=== PATIENT | female | born 1930 | race Caucasian/White ===

== ENCOUNTER 2019-07-06 11:19 | Emergency (ER) | payer MEDICARE ==
--- OUTSIDE RECORDS SUMMARY | 2019-07-06 11:36 | XMS REPORT | Continuity of Care Document ---
:1930 External Reference #:[id number] Author Name Meliza Umanzor, ISAURA, SOFIA Address [address] [place] [address] Care Team Providers Name Role Phone Chio Richmond MD - Internal Medicine Care Team Information Electronic Engineering Draftsperson [phone] Problems Active Problems Provider Date Benign essential hypertension Isaias Anaya M.D., Onset: 04/17/2012 [facility] Dizziness and giddiness Isaias Anaya M.D., Onset: 04/17/2012 [facility] Pure hypercholesterolemia Isaias Anaya M.D., Onset: 04/17/2012 [facility] Chest pain Isaias Anaya M.D., Onset: 04/17/2012 [facility] Aneurysm of thoracic aorta Meliza Umanzor, Onset: 05/21/2012 [facility] Localized, primary osteoarthritis of the Cj Tompkins M.D. Onset: 2014 pelvic region and thigh Arthralgia of the pelvic region and Cj Tompkins M.D. Onset: 06/16/2015 thigh Prosthetic arthroplasty of the hip Cj Tompkins M.D. Onset: 09/03/2015 Low back pain Cj Tompkins M.D. Onset: 12/06/2015 Essential hypertension Meliza Umanzor, Onset: 04/26/2017 [facility] DELAROS[facility] Malaise and fatigue Dulce Chahal MD Onset: 06/27/2017 Lumbar radiculopathy Cj Tompkins M.D. Onset: 08/01/2017 Walking disability Dulce Chahal MD Onset: 09/12/2017 Aftercare following joint replacement Dulce Chahal MD Onset: 11/28/2017 surgery Solitary sacroiliitis Ivis Lujan PA Onset: 12/17/2018 Social History Type Date Description Comments Sex Unknown Tobacco Use Start: Unknown Never Smoked Cigarettes ETOH Use Drinks Alcoholic Beverages Rarely Tobacco Use Start: Unknown Patient has never smoked Smoking Status Reviewed: 12/17/18 Patient has never smoked Allergies, Adverse Reactions, Alerts Description No Known Drug Allergies Medications Active Medications SIG Qnty Indications Ordering Provider Date Lisinopril 1 by mouth 60tabs I71.2 Umanzor, Meliza 05/26/2019 40mg Tablets twice a day ISAURA Britton, CERTIFIED ALCOHOL AND DRUG COUNSELOR I10 Bisoprolol Fumarate 1 tab by mouth 90tabs I10 Umanzor, Meliza 05/22/2018 5mg every evening ISAURA Britton, CERTIFIED ALCOHOL AND DRUG COUNSELOR Tablets Pravastatin Sodium 1 by mouth every E78.00 Unknown 10mg day Tablets Fish Oil take one capsule Unknown Capsules by mouth once daily Magnesium take 1 tab by Unknown Capsules mouth once daily Aspirin 1 by mouth every 4 Unknown 325mg Tablets hours as needed. Milk Of Magnesia once daily Unknown 400mg/5ML Suspension Tramadol HCL Unknown 50mg Tablets Vitamin D 1 by mouth daily. Unknown 2000Unit Tablets Immunizations Description No Information Available Vital Signs Date Vital Result Comment 05/26/2019 11:02am BP Systolic Sitting Left Arm 168 mmHg BP Diastolic Sitting Left Arm 90 mmHg Respiratory Rate 18 /min Height 60.5 inches 5'0.50" Weight 118.00 lb BMI (Body Mass Index) 22.7 kg/m2 BSA (Body Surface Area) 1.50 m2 [place] body weight in kilograms 47 kg O2 % BldC Oximetry 96 % 12/17/2018 10:44am BP Systolic 149 mmHg BP Diastolic 95 mmHg Body Temperature 99.8 F Heart Rate 60 /min Height 60.5 inches 5'0.50" Weight 115.00 lb BMI (Body Mass Index) 22.1 kg/m2 BSA (Body Surface Area) 1.48 m2 [place] body weight in kilograms 47 kg O2 % BldC Oximetry 98 % Results Description No Information Available Procedures Date Code Description Status 05/26/2019 43262 EKG-Tracing And Report Completed 12/17/2018 48100 Radiologic Exam Hip Unilateral With Pelvis 2-3 Views Completed 12/17/2018 49026 Radiology, L-S Spine Complete Completed 06/11/2013 03121708 Colonoscopy Completed Medical Devices Description No Information Available Encounters Type Date Location Provider Dx Diagnosis Office Visit 05/26/2019 Cardiology Office Meliza Umanzor I71.2 Thoracic aortic 11:00a ISAURA Britton, aneurysm, without CERTIFIED ALCOHOL AND DRUG COUNSELOR rupture 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 I10 Essential (primary) hypertension Office Visit 12/17/2018 10:45a Orthopaedic Office Ivis Lujan, M25.551 Pain in [place] right hip M46.1 Sacroiliitis, not elsewhere classified Z96.641 Presence of right artificial hip joint Assessments Date Code Description Provider 05/26/2019 I71.2 Thoracic aortic aneurysm, without Meliza Umanzor, ISAURA, rupture CERTIFIED ALCOHOL AND DRUG COUNSELOR 05/26/2019 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 aortic (valve) Meliza Umanzor MSN, insufficiency CERTIFIED ALCOHOL AND DRUG COUNSELOR 05/26/2019 I10 Essential (primary) hypertension Meliza Umanzor, ISAURA, CERTIFIED ALCOHOL AND DRUG COUNSELOR 12/17/2018 M25.551 Pain in right hip Ivis Lujan PA 12/17/2018 M46.1 Sacroiliitis, not elsewhere Ivis Lujan PA classified 12/17/2018 Z96.641 Presence of right artificial hip Ivis Lujan PA joint Plan of Treatment Future Appointment(s):07/03/2019 10:00 am - Meliza Umanzor MSN, CERTIFIED ALCOHOL AND DRUG COUNSELOR at Cardiology Fctntn9006/10/2019 11:40 am - Meliza Umanzor MSN, CERTIFIED ALCOHOL AND DRUG COUNSELOR at Cardiology [id number]/26/2019 - Meliza Umanzor MSN, FNPI71.2 Thoracic aortic aneurysm, without ruptureNew Medication:Lisinopril 40 mg - 1 by mouth twice a dayNew Xrays:CT, Chest, Without Contrast, Ordered: 05/26/19Comments: Raise the RHEA, monitor the BP and repeat the CT.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 aortic (valve ) insufficiencyNew Orders:Echocardiogram, Ordered: 05/26/19Comments:We will re- evaluate with an echo.I10 Essential (primary) hypertensionNew Medication: Lisinopril 40 mg - 1 by mouth twice a dayAllFollow up:2 week for BP check nurse visit (with her cuff). 1 month clinically. Functional Status Functional Condition Comment Date Status Independent with all ADL's Active Mental Status Description No Information Available Referrals Description No Information Available
--- OUTSIDE RECORDS SUMMARY | 2019-07-06 11:36 | XMS REPORT | Continuity of Care Document ---
:1930 External Reference #:[id number] Author Name Chio Richmond M.D. (transmitted by agent of provider Della Jones) Address [address] [place] [address] Problems Active Problems Provider Date Sciatica Chio Richmond M.D. 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 Mouth Once Daily 50mg Tablets With Food Tramadol HCL 1 by mouth every 120tabs G89.4 Chio Richmond M.D. 08/14/2017 50mg 6 hours as Tablets needed pain Pravastatin Sodium 1 by mouth every 90tabs Chio Richmond M.D. 07/18/2012 10mg day Tablets Lisinopril 1 by mouth twice 180tabs I11.9 Chio Richmond M.D. 04/01/2012 20mg Tablets a day Immunizations CPT Code Status Date Vaccine Lot # [id number] Given 04/30/2019 Influenza Virus (Quadrivalent)Splitvirus 3 Years Of Age And Older Q2035 Given 04/30/2019 Influenza Virus (Quadrivalent)Splitvirus 3 [id number] Years Of Age And Older Q2035 Given 03/19/2018 Influenza Virus (Quadrivalent)Splitvirus 3 Years Of Age And Older 11111 Given 03/19/2018 Influenza Virus Vaccine, Quadrivalent, Split, Preservative Free Q2035 Given 04/18/2017 Influenza Virus (Quadrivalent)Splitvirus 3 Years Of Age And Older Q2035 Given 02/19/2017 Influenza Virus (Quadrivalent)Splitvirus 3 Years Of Age And Older Q2037 Given 02/08/2016 Influenza Vaccine (Fluvirin) 3 Years Of Age Or [id number] Older Q2037 Given 06/23/2015 Influenza Vaccine (Fluvirin) 3 Years Of Age Or [id number] Older Q2037 Given 02/03/2014 Influenza Vaccine (Fluvirin) 3 Years Of Age Or Older Q2037 Given 04/29/2013 Influenza Vaccine (Fluvirin) 3 Years Of Age Or [id number] Older Q2037 Given 04/15/2012 Influenza Vaccine (Fluvirin) 3 Years Of Age Or [id number] Older 41836 Given 10/02/2011 Pneumovax Polyvalent Inj Im [id number] Q2036 Given 04/03/2011 Flulaval [id number] 79333 Given 04/27/2010 Influenza Vaccine [id number] 25523 Given 04/13/2008 Influenza Vaccine [id number] 93747 Given 04/09/2007 Influenza Vaccine [id number] 27990 Given 04/20/2006 Influenza Vaccine [id number] 37116 Given 03/30/2005 Influenza Vaccine [id number] 76991 Given 03/30/2005 Influenza Vaccine 98899 Given 07/12/1998 DT Immunization DIP/Tet (History Only) Vital Signs Date Vital Result Comment 02/25/2019 2:40pm BP Systolic 146 mmHg BP Diastolic 74 mmHg Heart Rate 58 /min Height 60 inches 5'0" Weight 122.00 lb BMI (Body Mass Index) 23.8 kg/m2 01/22/2019 11:29am BP Systolic 132 mmHg BP Diastolic 94 mmHg Heart Rate 74 /min Height 60 inches 5'0" Weight 115.00 lb BMI (Body Mass Index) 22.5 kg/m2 O2 % BldC Oximetry 98 % Results Description No Information Available Procedures Date Code Description Status 07/10/2013 781456053 Bone Mineral Density Test Completed 02/26/2013 60904639 Mammogram Completed Medical Devices Description No Information Available Encounters Type Date Location Provider Dx Diagnosis Office Visit 02/25/2019 Main Office Chio Richmond M.D. M51.06 Intervertebral disc 2:30p disorders with myelopathy, lumbar region G89.4 Chronic pain syndrome I11.9 Hypertensive heart disease without heart failure Office Visit 01/22/2019 11:30a Main Office Chio Richmond M.D. G89.4 Chronic pain syndrome M51.06 Intervertebral disc disorders with myelopathy, lumbar region Assessments Date Code Description Provider 04/30/2019 Z23 Encounter for immunization Chio Richmond M.D. 02/25/2019 M51.06 Intervertebral disc disorders with myelopathy, Chio Richmond M.D. lumbar region 02/25/2019 G89.4 Chronic pain syndrome Chio Richmond M.D. 02/25/2019 I11.9 Hypertensive heart disease without heart failure Chio Richmond M.D. 01/22/2019 G89.4 Chronic pain syndrome Chio Richmond M.D. 01/22/2019 M51.06 Intervertebral disc disorders with myelopathy, hCio Richmond M.D. lumbar region Plan of Treatment Future Appointment(s):07/07/2019 10:45 am - Chio Richmond M.D. at Main Office Functional Status Description No Information Available Mental Status Description No Information Available Referrals Description No Information Available
--- OUTSIDE RECORDS SUMMARY | 2019-07-06 11:36 | XMS REPORT | Continuity of Care Document ---
:1930 External Reference #:[id number] Author Name Meliza Umanzor, ISAURA, SOFIA Address [address] [place] [address] Care Team Providers Name Role Phone Chio Richmond MD - Internal Medicine Care Team Information Avionic Technician Problems Active Problems Provider Date Benign essential hypertension Isaias Anaya M.D., Onset: 04/17/2012 [facility] Dizziness and giddiness Isaias Anaya M.D., Onset: 04/17/2012 [facility] Pure hypercholesterolemia Isaias Anaya M.D., Onset: 04/17/2012 [facility] Chest pain Isaias Anaya M.D., Onset: 04/17/2012 [facility] Aneurysm of thoracic aorta Meliza Umanzor, Onset: [...] Medications SIG Qnty Indications Ordering Provider Date Losartan Potassium 1 by mouth 90tabs I71.2 Umanzor, Meliza 07/03/2019 100mg every day ISAURA Britton, Tablets ALODIZE MACHINE HELPER I10 Bisoprolol Fumarate 1 tab by mouth 90tabs I10 Umanzor, Meliza 05/22/2018 5mg every evening ISAURA Britton, ALODIZE MACHINE HELPER Tablets Pravastatin Sodium 1 by mouth every [...] 1 by mouth daily. Unknown 2000Unit Tablets History Medications Lisinopril 1 by mouth 60tabs I71.2 Umanzor, Meliza 05/26/2019 - 40mg twice a day ISAURA Britton, ALODIZE MACHINE HELPER 07/03/2019 Tablets I10 Immunizations Description No Information Available Vital Signs Date Vital Result Comment 07/03/2019 10:02am BP Systolic Sitting Left Arm 170 mmHg BP Diastolic Sitting Left Arm 82 mmHg Heart Rate 55 /min Respiratory Rate 16 /min Height 60 inches 5'0" Weight 120.00 lb BMI (Body Mass Index) 23.4 kg/m2 BSA (Body Surface Area) 1.50 m2 [place] body weight in kilograms 45 kg O2 Saturation Level with Exercise 95 % Ejection Fraction 60% 06/10/2019 11:50am BP Systolic 142 mmHg after 10 min wait BP Diastolic 86 mmHg after 10 min wait BP Systolic Sitting Left Arm 158 mmHg initial reading BP Diastolic Sitting Left Arm 92 mmHg initial reading Heart Rate 56 /min O2 % BldC Oximetry 97 % Ora Results Description No Information Available Procedures Date Code Description Status 06/27/2019 99717 Echocardiogram Complete Completed 05/26/2019 07853 EKG-Tracing And Report Completed 06/11/2013 45472799 Colonoscopy Completed Medical Devices Description No Information Available Encounters Type Date Location Provider Dx Diagnosis Office Visit 07/03/2019 Cardiology Office Meliza Umanzor I71.2 Thoracic aortic 10:00a ISAURA Britton, aneurysm, without ALODIZE MACHINE HELPER rupture 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 I10 Essential (primary) hypertension Office Visit 06/10/2019 Cardiology Meliza Umanzor I10 Essential 11:40a Office ISAURA Britton, (primary) ALODIZE MACHINE HELPER hypertension Office Visit 05/26/2019 Cardiology Meliza Umanzor I71.2 Thoracic aortic 11:00a Office ISAURA Britton, aneurysm, without ALODIZE MACHINE HELPER rupture 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 I10 Essential (primary) hypertension Assessments Date Code Description Provider 07/03/2019 I71.2 Thoracic aortic aneurysm, without Meliza Umanzor MSN, rupture ALODIZE MACHINE HELPER 07/03/2019 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 aortic (valve) Meliza Umanzor MSN, insufficiency ALODIZE MACHINE HELPER 07/03/2019 I10 Essential (primary) hypertension Meliza Umanzor MSN, ALODIZE MACHINE HELPER 06/27/2019 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 aortic (valve) Alber Blake MD insufficiency 06/10/2019 I10 Essential (primary) hypertension Isaias Anaya M.D., [facility] 06/10/2019 I10 Essential (primary) hypertension Meliza Umanzor MSN, ALODIZE MACHINE HELPER 05/26/2019 I71.2 Thoracic aortic aneurysm, without Meliza Umanzor MSN, rupture ALODIZE MACHINE HELPER 05/26/2019 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 aortic (valve) Meliza Umanzor MSN, insufficiency ALODIZE MACHINE HELPER 05/26/2019 I10 Essential (primary) hypertension Meliza Umanzor MSN, ALODIZE MACHINE HELPER Plan of Treatment Future Appointment(s):01/05/2020 10:20 am - Meliza Umanzor MSN, ALODIZE MACHINE HELPER at Cardiology Rdydxr6707/03/2019 - Meliza Umanzor MSN, FNPI71.2 Thoracic aortic aneurysm, without ruptureNew Medication:Losartan Potassium 100 mg - 1 by mouth every dayComments:We need to get better BP control to decrease the potential for expansion of the TDA.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Comments:Monitor.I10 Essential (primary) hypertensionNew Medication :Losartan Potassium 100 mg - 1 by mouth every dayNew Labs:Basic Metabolic Panel , Ordered: 07/03/19Comments:I will switch the lisinopril to losartan. She will have labs repeated in 1-2 weeks. She reports that she will be seeing Dr. Richmond in the near future.AllFollow up:Follow up visit in six months. Functional Status Functional Condition Comment Date Status Independent with all ADL's Active Mental Status Description No Information Available Referrals Description No Information Available
[2019-07-06 12:14] VITALS: BP 177/119
--- NOTE | 2019-07-06 12:22 | UC ---
Lower Extremity/Ankle HPI - HPI Summary HPI Summary: Right hip pain for the last three days. No recent fall or injury. Pain radiates down leg but denies tingling/numbness. Pt has had total hip replacments. Right hip procedure was two years ago. Taking Tramadol with some relief - History of Current Complaint Chief Complaint: UCLowerExtremity Stated Complaint: RIGHT HIP PAIN Time Seen by Provider: 07/06/19 11:59 Hx Obtained From: Patient Pain Intensity: 8 Pain Scale Used: 0-10 Numeric Aggravating Factor(s): Ambulation Alleviating Factor(s): OTC Meds, Other - tramadol Able to Bear Weight: Yes - but now using walker which is not typical - Allergies/Home Medications Allergies/Adverse Reactions: Allergies Allergy/AdvReac Type Severity Reaction Status Date / Time No Known Allergies Allergy Verified 07/06/19 11:57 Home Medications: Home Medications Losartan/Hydrochlorothiazide [Losartan Potassium/Hydroc 100-12.5 mg] 1 tab PO DAILY 07/06/19 [History Confirmed 07/06/19] traMADol TAB* [Ultram*] 50 mg PO Q6HR PRN 07/06/19 [History Confirmed 07/06/19] PMH/Surg Hx/FS Hx/Imm Hx Previously Healthy: Yes Cardiovascular History: Cardiac Disease, Hypertension - Surgical History Surgical History: Yes Surgery Procedure, Year, and Place: Cataracts; left THR 2015-. BILATERAL HIP REPLACEMENTS - Family History Known Family History: Positive: Non-Contributory - Social History Alcohol Use: None Substance Use Type: None Smoking Status (MU): Never Smoked Tobacco Review of Systems All Other Systems Reviewed And Are Negative: Yes Constitutional: Negative: Fever, Chills, Fatigue Skin: Negative: Bruising Respiratory: Negative: Shortness Of Breath Motor: Positive: Decreased ROM - R leg due to R hip pain.. Negative: Weakness Neurovascular: Negative: Decreased Sensation Musculoskeletal: Positive: Arthralgia - R lower back, Decreased ROM - R hip. Negative: Edema, Myalgia Neurological: Negative: Weakness, Paresthesia, Numbness Physical Exam Triage Information Reviewed: Yes Appearance: Well-Appearing Vital Signs: Initial Vital Signs Temp 98.9 F 07/06/19 12:02 Pulse 79 07/06/19 12:02 Resp 16 07/06/19 12:02 BP 177/119 07/06/19 12:02 Pulse Ox 95 07/06/19 12:02 Vital Signs Reviewed: Yes Respiratory: Positive: No respiratory distress Musculoskeletal: Positive: Strength Intact, No Edema, ROM Limited @ - R hip Neurological: Positive: Alert, Muscle Tone Normal - for her age Skin: Negative: Other - no bruising noted in LE or R hip. Diagnostics - Radiology No standard instances Radiology Interpretation Completed By: Radiologist Summary of Radiographic Findings: IMPRESSION: OSTEOPENIA. STATUS POST BILATERAL HIP ARTHROPLASTY. ON THE RIGHT, THERE IS PERIPROSTHETIC LUCENCY ALONG THE FEMORAL COMPONENT SUGGESTIVE OF LOOSENING. Lower Extremity Course/Dx - Course Course Of Treatment: 3 days of R hip pain in an elderly pt. w/ hx of bilat hip replacement. no hx of recent falls. R hip pain on exam w/ ROM TESTING and walking. No limping noted. XRAY showed possible loosening of hardware but no other issues aside from osteopenia. Will give nightly muscle relaxer given her age. We discussed tramadol which she already takes at home and those risks as well. Plan is to have her f/u w/ ORTHO to discuss further work up but at this time we suspect muscle etiology. Of note her BP WAS TO BE CHECKED before she left but we did not capture this. she will discuss htn w/ her pcp. - Differential Dx/Diagnosis Differential Diagnosis/HQI/PQRI: Contusion, Dislocation, Osteomyelitis, Tendonitis, Tenosynovitis, Other Provider Diagnosis: Right hip pain Discharge ED - Sign-Out/Discharge Documenting (check all that apply): Patient Departure All imaging exams completed and their final reports reviewed: Yes - Discharge Plan Condition: Good Disposition: HOME Prescriptions: Cyclobenzaprine (NF) [Cyclobenzaprine 5 MG (NF)] 5 mg PO BEDTIME PRN 5 Days #5 tab PRN Reason: muscle Patient Education Materials: Chronic Hypertension (ED) Referrals: Chio Richmond MD [Primary Care Provider] - Additional Instructions: Please discuss your high blood pressure with your main doctor. It is recommended you see your Orthopedist w/in the week. - Billing Disposition and Condition Condition: GOOD Disposition: Home
== END 2019-07-06 13:30 | disposition home or self-care (01) ==
LOC: UCCORT 11:19
DX: M25.551 Pain in right hip (principal); I10 Essential (primary) hypertension; M85.862 Other specified disorders of bone density and structure, left lower leg; M85.861 Other specified disorders of bone density and structure, right lower leg; Z96.643 Presence of artificial hip joint, bilateral; Z79.899 Other long term (current) drug therapy
CPT/HCPCS: 99201; G0463